=== PATIENT | male | born 1960 | race Caucasian/White ===

== ENCOUNTER → 2020-08-19 | Outpatient (CLI) | payer SELFPAY ==
--- NOTE | 2020-08-19 09:33 | RADIOLOGY REPORT (SQ) ---
EXAM DESCRIPTION: CT ABD/PELVIS WITH IV ORAL IMAGES COMPLETED DATE/TIME: 08/19/2020 8:22 am REASON FOR STUDY: HEPATOMEGALY R16.0 HEPATOMEGALY, NOT ELSEWHERE CLASSIFIED COMPARISON: None. TECHNIQUE: CT scan of the abdomen and pelvis performed using helical scanning technique with dynamic intravenous contrast injection. Patient was given oral contrast. Images reviewed with lung, soft ti ssue, and bone windows. Reconstructed coronal and sagittal MPR images reviewed. Delayed images for ev aluation of the urinary system also acquired. All images stored on PACS. All CT scanners at this facility use dose modulation, iterative reconstruction, and/or weight based d osing when appropriate to reduce radiation dose to as low as reasonably achievable (ALARA). [facility]: Dose Right [facility]: CareDose [facility]: Dose Right [facility]: Teradose 4D [facility]: Intersect ENT CONTRAST TYPE AND DOSE: contrast/concentration: Isovue 350.00 mmol/ml; Total Contrast Delivered: 94. 0 ml; Total Saline Delivered: 37.0 ml RENAL FUNCTION: Creatinine 0.96 RADIATION DOSE: CT Rad equipment meets quality standard of care and radiation dose reduction techniq ues were employed. CTDIvol: 9.0 - 12.3 mGy. DLP: 2388 mGy-cm.. LIMITATIONS: None. FINDINGS: LOWER CHEST: See separate report of the CT of the chest. LIVER: Multiple irregular hypoechoic hepatic masses throughout both lobes, largest within the right l obe measuring 9.8 cm. Large mass within the caudate lobe measuring 7.8 cm with mass effect on adjace nt intrahepatic IVC. No intrahepatic ductal dilation. SPLEEN: Multiple calcified granuloma. PANCREAS: No masses. No significant calcifications. No adjacent inflammation or peripancreatic fluid collections. Pancreatic duct not dilated. GALLBLADDER: Decompressed. No pericholecystic inflammatory change. ADRENAL GLANDS: No significant masses or asymmetry. RIGHT KIDNEY AND URETER: No solid masses. No significant calcifications. No hydronephrosis or hyd roureter. LEFT KIDNEY AND URETER: No solid masses. No significant calcifications. No hydronephrosis or hydr oureter. AORTA AND VESSELS: Aortoiliac atherosclerosis without aneurysm. No dissection. Renal arteries, SMA, c eliac without stenosis. RETROPERITONEUM: Shotty mesenteric can retroperitoneal lymph nodes without discrete adenopathy. Prea ortic node measuring 8 mm in short axis (series 4, image 42). No retroperitoneal mass or hemorrhage. BOWEL AND PERITONEAL CAVITY: Apparent soft tissue mass at the level of the cecum with mild adjacent p ericecal stranding and shotty lymph nodes (series 4, image 59 - 65). No evidence of intestinal obstr uction. APPENDIX: Normal. PELVIS: No mass. No free fluid. Normal bladder. ABDOMINAL WALL: No masses. No hernias. BONES: No acute bony abnormality. Few small subtle lucent lesions. For reference 8 mm lucent lesion along the anterior aspect of the L4 vertebral body (series 4, image 54). OTHER: No other significant finding. IMPRESSION: 1. Apparent soft tissue mass at the level of the cecum with mild adjacent pericecal str anding and shotty lymph nodes suspicious for neoplasm. Recommend correlation with colonoscopic histo ry. 2. Multiple irregular hypoechoic hepatic masses, largest measuring 9.8 cm, most compatible with hepa tic metastatic disease. 3. Few subtle lucent osseous lesions suspicious for osseous metastatic disease. TECHNICAL DOCUMENTATION: JOB ID: [id number] Quality ID # [id number]: Final reports with documentation of one or more dose reduction techniques (e.g., Au tomated exposure control, adjustment of the mA and/or kV according to patient size, use of iterative reconstruction technique) 2010 [employer]- All Rights Reserved Reading location - IP/workstation name: [email or web address]
--- NOTE | 2020-08-19 09:34 | RADIOLOGY REPORT (SQ) ---
EXAM DESCRIPTION: CT CHEST WITH IMAGES COMPLETED DATE/TIME: 08/19/2020 8:23 am REASON FOR STUDY: HEPATOMEGALY R16.0 HEPATOMEGALY, NOT ELSEWHERE CLASSIFIED COMPARISON: None. TECHNIQUE: CT scan of the chest performed using helical scanning technique with dynamic intravenous contrast injection. Images reviewed with lung, soft tissue and bone windows. Reconstructed coronal and sagittal MPR and MIP images reviewed. All images stored on PACS. All CT scanners at this facility use dose modulation, iterative reconstruction, and/or weight based d osing when appropriate to reduce radiation dose to as low as reasonably achievable (ALARA). [facility]: Dose Right [facility]: CareDose [facility]: Dose Right [facility]: Teradose 4D [facility]: [employer] CONTRAST TYPE AND DOSE: See abdomen RENAL FUNCTION: Creatinine 0.96 RADIATION DOSE: . LIMITATIONS: None. FINDINGS: LUNGS AND PLEURA: There are multiple noncalcified solid pulmonary nodules throughout both lungs. For reference largest left upper lobe pulmonary nodule measures 9.3 mm (series 7, image 60). Largest right middle lobe pulmonary nodule measures 7 mm (series 7, image 631). There are scattered additional calcified pulmonary nodules. Calcified mediastinal and hilar nodes. No focal consolidat ion. No pleural effusion or pneumothorax. HILAR AND MEDIASTINAL STRUCTURES: Calcified mediastinal and bilateral hilar lymph nodes. No discrete adenopathy. HEART AND VASCULAR STRUCTURES: Trace pericardial effusion. Normal heart size. No significant calcif ied coronary atherosclerosis. HARDWARE: None in the chest. UPPER ABDOMEN: See separate report of the CT of the abdomen. THYROID AND OTHER SOFT TISSUES: No masses. No adenopathy. Low-density subcutaneous nodule within th e right paramedian back subcutaneous tissues measuring 23 mm, possibly sebaceous cyst. BONES: Acute to subacute right posterior 10th rib fracture. No other acute bony abnormalities. Scat tered ill-defined lucent osseous lesions lytic lesions. For reference, lytic lesion within the infer ior left scapula measuring 17 mm (series 602, image 73). Lucent area within the right manubrium prabha uring 9 mm (series 7, image 21). Questionable lytic lesion at the right distal clavicle measuring 12 mm (series 7, image 1). No discrete sclerotic lesions. OTHER: No other significant finding. IMPRESSION: 1. Multiple scattered bilateral pulmonary nodules, largest within the left upper lobe m easuring 9.3 mm suspicious for metastatic disease. 2. Multiple scattered subtle lucent lesions suggestive of osseous metastatic disease. Bone scan cou ld be considered for further characterization. Acute to subacute posterior right 10th rib fracture. 3. See abdomen for findings below the diaphragm. TECHNICAL DOCUMENTATION: JOB ID: [id number] Quality ID # [id number]: Final reports with documentation of one or more dose reduction techniques (e.g., Au tomated exposure control, adjustment of the mA and/or kV according to patient size, use of iterative reconstruction technique) 2010 [employer]- All Rights Reserved Reading location - IP/workstation name: [email or web address]
== END ==
LOC: RAD 07:48
PROVIDERS: ATTEND Internal Medicine
DX: R16.0 Hepatomegaly, not elsewhere classified (principal); R91.8 Other nonspecific abnormal finding of lung field; M89.9 Disorder of bone, unspecified; R19.09 Other intra-abdominal and pelvic swelling, mass and lump; S22.31XA Fracture of one rib, right side, initial encounter for closed fracture; X58.XXXA Exposure to other specified factors, initial encounter; Y93.89 Activity, other specified; Y92.89 Other specified places as the place of occurrence of the external cause
CPT/HCPCS: 71260; 74177

== ENCOUNTER 2020-08-23 18:20 | Inpatient (IN) | payer SELFPAY ==
--- NOTE | 2020-08-23 18:51 | ER Document Report ---
ED Medical Screen (RME) - General Chief Complaint: Dizziness Stated Complaint: LOW BLOOD PRESSURE/DIZZINESS Time Seen by Provider: 08/23/20 18:45 Primary Care Provider: LAITH ROBERTS PA-C [Primary Care Provider] - Follow up as needed Mode of Arrival: Wheelchair Notes: 60-year-old male presented to ED for complaint of dizziness low blood pressure and extreme fatigue. He states he has been for 3 or 4 days. He states he has not had any blood pressure medicine for 3 days. He states he normally takes blood pressure medications for high blood pressure. Patient has lung cancer with liver mets. He is a patient of Dr. Salazar. He was on blood pressure medicine but these are all stopped due to his blood pressure. I have informed the charge nurse of the low blood pressure low O2 sat and patient's condition. I have greeted and performed a rapid initial assessment of this patient. A comprehensive ED assessment and evaluation of the patient, analysis of test results and completion of medical decision making process will be conducted by an additional ED providers. - Related Data Allergies/Adverse Reactions: No Known Allergies Allergy (Unverified 08/23/20 15:56) Past Medical History - General Information source: Patient - Social History Cigarette use (# per day): Yes - Pack a day Frequency of alcohol use: None Drug Abuse: None Lives with: Family Family history: Reviewed & Not Pertinent - Past Medical History Cardiac Medical History: Reports: None Pulmonary Medical History: Reports: None EENT Medical History: Reports: None Neurological Medical History: Reports: None Endocrine Medical History: Reports: None Renal/ Medical History: Reports: None Malignancy Medical History: Reports Hx Colorectal Cancer - With mets to liver GI Medical History: Reports: Hx Colonoscopy, Hx Endoscopy Musculoskeltal Medical History: Reports Hx Arthritis, Reports Hx Musculoskeletal Deformity, Reports Hx Musculoskeletal Trauma Skin Medical History: Reports None Psychiatric Medical History: Reports: None Traumatic Medical History: Reports: Hx Fractures Infectious Medical History: Reports: None Past Surgical History: Reports: Hx Orthopedic Surgery - Plates and screws in his left hand - Immunizations Immunizations up to date: Yes Hx Diphtheria, Pertussis, Tetanus Vaccination: Yes Physical Exam - Vital signs Vitals: Temp Pulse Resp BP Pulse Ox 98.9 F 86 18 93/51 L 93 08/23/20 18:28 08/23/20 18:28 08/23/20 18:28 08/23/20 18:28 08/23/20 18:28 Course - Vital Signs Vital signs: Temp Pulse Resp BP Pulse Ox 98.9 F 86 18 93/51 L 93 08/23/20 18:28 08/23/20 18:28 08/23/20 18:28 08/23/20 18:28 08/23/20 18:28 Doctor's Discharge - Discharge Referrals: LAITH ROBERTS PAGuzmanC [Primary Care Provider] - Follow up as needed
--- NOTE | 2020-08-23 19:51 | RADIOLOGY REPORT (SQ) ---
EXAM DESCRIPTION: CHEST 2 VIEWS IMAGES COMPLETED DATE/TIME: 08/23/2020 7:42 pm REASON FOR STUDY: Lightheaded dizzy low blood pressure fatigue cancer COMPARISON: None. EXAM PARAMETERS: NUMBER OF VIEWS: two views TECHNIQUE: Digital Frontal and Lateral radiographic views of the chest acquired. RADIATION DOSE: NA LIMITATIONS: none FINDINGS: LUNGS AND PLEURA: Chronic interstitial changes. There appears to be some ill-defined nodu larity in both lungs. MEDIASTINUM AND HILAR STRUCTURES: No masses or contour abnormalities. HEART AND VASCULAR STRUCTURES: Heart normal size. No evidence for failure. BONES: No acute findings. HARDWARE: None in the chest. OTHER: No other significant finding. IMPRESSION: Chronic lung changes with pulmonary nodules. No acute finding. TECHNICAL DOCUMENTATION: JOB ID: [id number] 2010 [employer]- All Rights Reserved Reading location - IP/workstation name: [email or web address]
[2020-08-23 20:20] LABS: INTERNATIONAL RATION (INR) 2.79; PROTHROMBIN TIME 29.4 SEC (11.4-15.4)
[2020-08-23 20:21] LABS: PARTIAL THROMBOPLASTIN TIME 54.9 SEC (23.5-35.8)
[2020-08-23 20:22] LABS: HEMATOCRIT 37.1 % (37.9-51.0); HEMOGLOBIN 12.9 g/dL (13.5-17.0); MEAN CORPUSCULAR HEMOGLOBIN 34.7 pg (27.0-33.4); MEAN CORPUSCULAR HGB CONC 34.8 g/dL (32.0-36.0); MEAN CORPUSCULAR VOLUME 100 fl (80-97); PLATELET COUNT 229 10^3/uL (150-450); RED BLOOD COUNT 3.72 10^6/uL (4.35-5.55); RED CELL DISTRIBUTION WIDTH 15.4 % (11.5-14.0); WHITE BLOOD COUNT 28.2 10^3/uL (4.0-10.5)
[2020-08-23 20:29] LABS: ALBUMIN 3.8 g/dL (3.5-5.0); ALKALINE PHOSPHATASE 271 U/L (38-126); ANION GAP 9 (5-19); ASPARTATE AMINO TRANSFERASE 190 U/L (17-59); BILIRUBIN,DIRECT 4.6 mg/dL (0.0-0.4); BILIRUBIN,TOTAL 5.7 mg/dL (0.2-1.3); BLOOD UREA NITROGEN 37 mg/dL (7-20); CARBON DIOXIDE 28 mmol/L (22-30); CHLORIDE 98 mmol/L (98-107); GLUCOSE 82 mg/dL (75-110); POTASSIUM 4.7 mmol/L (3.6-5.0); TOTAL PROTEIN 6.9 g/dL (6.3-8.2)
[2020-08-23 20:32] LABS: ABSOLUTE MONOCYTES # (MANUAL) 1.1 10^3/uL (0.1-1.4); BAND NEUTROPHILS % (MANUAL) 1 % (3-5); BASOPHILS % (MANUAL) 0 % (0-2); EOSINOPHILS % (MANUAL) 4 % (0-6); LYMPHOCYTES % (MANUAL) 7 % (13-45); METAMYELOCYTES % (MANUAL) 1 % (0-1); MONOCYTES % (MANUAL) 4 % (3-13); SEGMENTED NEUTROPHILS % (MAN) 83 % (42-78); TOTAL CELLS COUNTED 100
[2020-08-23 20:34] LABS: ANISOCYTOSIS SLIGHT; POIKILOCYTOSIS SLIGHT; POLYCHROMASIA SLIGHT; TARGET CELLS SLIGHT
[2020-08-23 20:35] LABS: PLATELET COMMENT ADEQUATE
[2020-08-23 20:46] LABS: CALCIUM 15.9 mg/dL (8.4-10.2)
[2020-08-23 20:56] LABS: PHOSPHORUS 4.2 mg/dL (2.5-4.5)
[2020-08-23] MEDS ORDERED: RINGERS SOLUTION,LACTATED 1,000 ML IV ONE (21:02)
[2020-08-23] MEDS ORDERED: METRONIDAZOLE 500 MG/NS RTU 500 MG/100 ML RTUPB IV ONE (21:18)
[2020-08-23] MEDS ORDERED: LEVOFLOXACIN 750 MG/D5W RTU 750 MG/150 ML RTUPB IV ONE (21:18)
[2020-08-23] MEDS ORDERED: ONDANSETRON HCL INJ/PF 4 MG/2 ML SDV IV ONE (22:00)
[2020-08-23] MEDS ORDERED: MORPHINE SULFATE 10 MG/ML INJ IV ONE (22:00)
[2020-08-23 22:07] LABS: APPEARANCE,URINE CLEAR; BILIRUBIN,URINE NEGATIVE (NEGATIVE); COLOR,URINE AMBER; GLUCOSE, URINE NEGATIVE (NEGATIVE); KETONES,URINE NEGATIVE (NEGATIVE); PROTEIN,URINE NEGATIVE (NEGATIVE); URINE SPECIFIC GRAVITY 1.013
[2020-08-23 22:18] LABS: A TYPE INFLUENZA AG NEGATIVE (NEGATIVE); B INFLUENZA AG NEGATIVE (NEGATIVE)
[2020-08-23] MEDS ORDERED: RINGERS LACTATED IV PRN (22:35)
--- NOTE | 2020-08-23 23:05 | RADIOLOGY REPORT (SQ) ---
CT abdomen and pelvis without contrast on 08/23/2020 at 10:23 PM CLINICAL INDICATION: Sepsis, colon cancer with liver metastasis, fatigue TECHNIQUE: Multiple axial images are obtained throughout the abdomen and pelvis without the administration of contrast. This exam was performed according to our departmental dose-optimization program, which includes automated exposure control, adjustment of the mA and/or kV according to patient size and/or use of iterative reconstruction technique. Total DLP is 711.13 mGy*cm. COMPARISON: 08/19/2020 FINDINGS: Abdomen: There is evidence of calcified granulomatous disease in the lung bases. There are multiple small noncalcified pulmonary nodules that are indeterminate but very worrisome for metastatic disease in this patient. The patient's known multiple low-density liver lesions are better visualized on the prior enhanced examination but likely not significant changed. The largest is in the right hepatic lobe seen well on axial image 25. Gallstones are noted in the gallbladder. There is a probable tiny nonobstructing stone in the upper pole of the left kidney. There are no ureteral stones and no hydronephrosis. The unenhanced solid abdominal organs are otherwise unremarkable. There is a borderline sized aortocaval lymph node on axial image 44 measuring 1.5 x 0.7 cm that is indeterminate but could represent metastatic disease. No other abdominal adenopathy is noted. There is no free fluid or free air within the abdomen. The abdominal portion of the GI tract is unremarkable. Pelvis: Also better visualized on the previous exam is the patient's irregular mass in the inferior cecum consistent with primary colonic adenocarcinoma. This is seen on axial image 65 of this exam. There is no evidence of obstruction. Oral contrast from the recent exam extends into the distal colon and rectum. Pelvic portion of the GI tract is otherwise unremarkable. There is no free fluid in the pelvis. There is a small pericecal lymph nodes that likely represents early metastatic disease. No other pelvic adenopathy is noted. Degenerative changes are noted in the spine. Bilateral pars defects are noted at L5 with grade 1 spondylolisthesis of L5-S1. No acute bony abnormality is noted. IMPRESSION: 1. Cholelithiasis. 2. Stable cecal mass/probable adenocarcinoma and hepatic metastatic disease and likely pulmonary metastatic disease when compared with the recent prior exam. 3. Left nephrolithiasis.
[2020-08-24] MEDS ORDERED: ONDANSETRON HCL INJ/PF 4 MG/2 ML SDV IV ONE (01:36)
[2020-08-24] MEDS ORDERED: ACETAMINOPHEN 325 MG TABLET PO PRN (01:44)
[2020-08-24] MEDS ORDERED: ONDANSETRON HCL INJ/PF 4 MG/2 ML SDV IV PRN (01:44)
[2020-08-24] MEDS ORDERED: ZOLEDRONIC ACID 5 MG/100 ML BOTTLE IV ONE (01:53)
[2020-08-24] MEDS ORDERED: CALCITONIN,SALMON,SYNTHETIC 400 UNIT/2 ML VIAL IM SCH ×2 (02:00→18:00)
[2020-08-24] MEDS ORDERED: MORPHINE SULFATE 10 MG/ML INJ IV PRN (02:11)
--- NOTE | 2020-08-24 02:17 | ER Document Report ---
ED General - General Chief Complaint: Weakness Stated Complaint: LOW BLOOD PRESSURE/DIZZINESS Time Seen by Provider: 08/23/20 18:45 Mode of Arrival: Wheelchair Notes: 60-year-old male with htn, primary colon cancer with mets to liver and recently diagnosed mets to lungs presents with generalized weakness and low blood pressure associated with lightheadedness for the past 3 to 4 days. Patient has a history of hypertension but has not been taking his antihypertensives for the past several days because of low blood pressure. Patient endorses frequent urination but is unable to say how long he has experienced that for and denies any urgency, dysuria, hematuria, flank pain, fever. Patient has had chronic diffuse abdominal pain and distention since diagnosis, feels like it has been progressively getting worse but unsure over what time scale this change has been noticed. Patient denies any recent chemo, black stool, bloody stool, done sedation, diarrhea, vomiting, cough, seizure, chest pain, shortness of breath, back pain, headache, neck pain or stiffness - Related Data Allergies/Adverse Reactions: No Known Allergies Allergy (Verified 08/23/20 20:47) Past Medical History - General Information source: Patient, Relative, [facility] Records, Outside Facility Records - Social History Smoking Status: Current Every Day Smoker Cigarette use (# per day): Yes - Pack a day Frequency of alcohol use: None Drug Abuse: None Lives with: Family Family History: Reviewed & Not Pertinent - Past Medical History Cardiac Medical History: Reports: None Pulmonary Medical History: Reports: None EENT Medical History: Reports: None Neurological Medical History: Reports: None Endocrine Medical History: Reports: None Renal/ Medical History: Reports: None Malignancy Medical History: Reports Hx Colorectal Cancer - With mets to liver GI Medical History: Reports: Hx Colonoscopy, Hx Endoscopy Musculoskeletal Medical History: Reports Hx Arthritis, Reports Hx Musculoskeletal Deformity, Reports Hx Musculoskeletal Trauma Skin Medical History: Reports None Psychiatric Medical History: Reports: None Traumatic Medical History: Reports: Hx Fractures Infectious Medical History: Reports: None Past Surgical History: Reports: Hx Orthopedic Surgery - Plates and screws in his left hand - Immunizations Immunizations up to date: Yes Hx Diphtheria, Pertussis, Tetanus Vaccination: Yes Review of Systems - Review of Systems Notes: REVIEW OF SYSTEMS: CONSTITUTIONAL : Denies fever, chills, or sweats. EENT: Denies recent cold/sinus symptoms, denies throat pain CARDIOVASCULAR: Denies chest pain, NARESH RESPIRATORY: +cough, denies shortness of breath. GASTROINTESTINAL: + abdominal pain, -nausea/vomiting. GENITOURINARY: Denies difficulty urinating, painful urination. MUSCULOSKELETAL: Denies neck pain, back pain. SKIN: Denies rash or skin lesions. HEMATOLOGIC : Denies easy bruising or bleeding. LYMPHATIC: Denies swollen, enlarged glands. NEUROLOGICAL: Denies headache, denies change in gait. PSYCHIATRIC: Denies anxiety or depression. Physical Exam - Vital signs Vitals: Temp Pulse Resp BP Pulse Ox 98.9 F 86 18 93/51 L 93 08/23/20 18:28 08/23/20 18:28 08/23/20 18:28 08/23/20 18:28 08/23/20 18:28 - Notes Notes: PHYSICAL EXAMINATION: GENERAL: Chronically ill-appearing uncomfortable but nontoxic middle-age man ly ing in stretcher in no acute distress HEAD: Atraumatic, normocephalic. EYES: Pupils equal round and appropriate constriction, sclera anicteric, conjunctiva are normal. ENT: nares patent, moist mucous membranes. NECK: Normal range of motion, supple without lymphadenopathy LUNGS: Breath sounds clear to auscultation bilaterally and equal. No wheezes rales or rhonchi. Normal respiratory rate and effort HEART: Regular rate and rhythm with faint systolic murmur ABDOMEN: Distended, hepatomegaly, mild diffuse tenderness without guarding or rebound, no CVA tenderness EXTREMITIES: Normal range of motion, trace symmetric pedal edema NEUROLOGICAL: Awake, alert, oriented, conversing appropriately, moves all extremities spontaneously. PSYCH: Normal mood, normal affect. SKIN: Warm, Dry, normal turgor, no rashes or lesions noted. Course - Re-evaluation Re-evalutation: 08/24/20 02:37 Patient with metastatic liver cancer with new hypotension, no obvious cause on history or exam, rule out urinary/respiratory/COVID-19 sepsis, cardiac, electrolyte abnormalities, anemia/occult bleeding, rhabdo. no PE symptoms and patient able to give reliable history. Blood cultures, urine culture, x-ray, intervals, EKG, monitor, electrolytes, coags, admit. Blood pressure improved with fluids, mildly elevated lactate not obviously secondary to sepsis as patient has liver failure with elevated INR may be primary hepatic lactate, but have cover patient with broad-spectrum antibiotics and given 30 mils per kilogram fluid bolus. Patient accepted to IMCU by Dr. Coker. - Vital Signs Vital signs: Temp Pulse Resp BP Pulse Ox 98.3 F 82 18 114/62 93 08/24/20 03:47 08/24/20 03:47 08/24/20 03:47 08/24/20 03:47 08/24/20 03:47 - Laboratory Result Diagrams: 08/23/20 19:25 08/24/20 02:12 Laboratory results interpreted by me: 08/23/20 08/23/20 08/23/20 19:25 19:25 19:25 WBC 28.2 H RBC 3.72 L Hgb 12.9 L Hct 37.1 L MCV 100 H MCH 34.7 H RDW 15.4 H Seg Neuts % (Manual) 83 H Band Neutrophils % 1 L Lymphocytes % (Manual) 7 L Abs Neuts (Manual) 24.0 H Absolute Eos (Manual) 1.1 H PT 29.4 H APTT 54.9 H Sodium 135.0 L BUN 37 H Creatinine 1.37 H Est GFR (MDRD) Non-Af 53 L Lactic Acid Calcium 15.9 H* Magnesium Total Bilirubin 5.7 H Direct Bilirubin 4.6 H AST 190 H ALT 95 H Alkaline Phosphatase 271 H NT-Pro-B Natriuret Pep Urine Urobilinogen 08/23/20 08/23/20 08/23/20 19:25 19:25 21:26 WBC RBC Hgb Hct MCV MCH RDW Seg Neuts % (Manual) Band Neutrophils % Lymphocytes % (Manual) Abs Neuts (Manual) Absolute Eos (Manual) PT APTT Sodium BUN Creatinine Est GFR (MDRD) Non-Af Lactic Acid Calcium Magnesium 2.5 H Total Bilirubin Direct Bilirubin AST ALT Alkaline Phosphatase NT-Pro-B Natriuret Pep 721 H Urine Urobilinogen 2.0 H 08/23/20 21:35 WBC RBC Hgb Hct MCV MCH RDW Seg Neuts % (Manual) Band Neutrophils % Lymphocytes % (Manual) Abs Neuts (Manual) Absolute Eos (Manual) PT APTT Sodium BUN Creatinine Est GFR (MDRD) Non-Af Lactic Acid 2.2 H Calcium Magnesium Total Bilirubin Direct Bilirubin AST ALT Alkaline Phosphatase NT-Pro-B Natriuret Pep Urine Urobilinogen - EKG Interpretation by Me Additional EKG results interpreted by me: 08/24/20 06:24 Sinus rhythm, no significant ST elevations or depressions, T wave inversions in lead III and aVF, QTC 419 Discharge - Discharge Clinical Impression: Colon carcinoma metastatic to multiple sites, Hypercalcemia, YOAN (acute kidney injury) Hypotension Qualifiers: Hypotension type: unspecified hypotension type Qualified Code(s): I95.9 - Hypotension, unspecified Leukocytosis Qualifiers: Leukocytosis type: bandemia Qualified Code(s): D72.825 - Bandemia Liver failure Qualifiers: Liver failure chronicity: acute Hepatic coma status: without hepatic coma Qualified Code(s): K72.00 - Acute and subacute hepatic failure without coma Condition: Serious Disposition: ADMITTED INPATIENT [facility]
--- NOTE | 2020-08-24 02:44 | PDOC H&P ---
History of Present Illness Admission Date/PCP: LAITH ROBERTS PA-C Patient complains of: Low blood pressure. Nausea and History of Present Illness: GONZALO BECKHAM is a 60 year old male with a history of hypertension and recently diagnosed colon cancer with metastasis to the liver and the lungs now presents to the ED via EMS after his blood pressure was consistently low at home. Patient reports that he has been having loss of appetite and it has been progressively getting worse. Over the past 2 weeks he feels nauseated and has not been able to eat much. He also reports that he has been feeling extremely tired unable to do anything or move at home, dizzy and lightheaded especially when he gets up to move. He has a chronic cough but he states that the intensity has not changed recently. He also complains of bilateral chest pain posteriorly which gets worse with movement and when he coughs. He also states that he has not had bowel movement for the past 5 days and his abdomen has been progressively getting distended. He denies fever, chills vomiting or diarrhea. He has been seen by heme-onc and plan was to do biopsy of the mass next Wednesday and insert Chemo-Port for possible chemotherapy the following week. Past Medical History Cardiac Medical History: Reports: None Pulmonary Medical History: Reports: None EENT Medical History: Reports: None Neurological Medical History: Reports: None Endocrine Medical History: Reports: None Renal/ Medical History: Reports: None Malignancy Medical History: Reports: Colorectal Cancer - With mets to liver Musculoskeltal Medical History: Reports: Arthritis Skin Medical History: Reports: None Psychiatric Medical History: Reports: None Infectious Medical History: Reports: None Past Surgical History Past Surgical History: Reports: Orthopedic Surgery - Plates and screws in his left hand Social History Information Source: Patient Lives with: Family Smoking Status: Current Every Day Smoker Frequency of Alcohol Use: Occasional - Advance Directive Resuscitation Status: Full Code Family History Parental Family History Reviewed: Yes Children Family History Reviewed: Yes Sibling(s) Family History Reviewed.: Yes Medication/Allergy Home Medications: Benzonatate 200 mg PO PRN PRN 08/23/20 Cephalexin [Keflex] 500 mg PO TID 08/23/20 Hydrocodone/Acetaminophen [Vicodin Hp 10-300 mg Tablet] 1 tab PO Q6HP PRN 08/23/20 Allergies/Adverse Reactions: No Known Allergies Allergy (Verified 08/23/20 20:47) Review of Systems Constitutional: PRESENT: as per HPI Eyes: ABSENT: visual disturbances Ears: ABSENT: hearing changes Nose, Mouth, and Throat: ABSENT: as per HPI, headache(s), mouth pain, sore throat, vertigo, other Cardiovascular: ABSENT: chest pain, dyspnea on exertion, edema, orthropnea, palpitations Respiratory: PRESENT: as per HPI Gastrointestinal: PRESENT: as per HPI Genitourinary: ABSENT: dysuria, hematuria Musculoskeletal: ABSENT: joint swelling Integumentary: ABSENT: rash, wounds Neurological: ABSENT: abnormal gait, abnormal speech, confusion, dizziness, focal weakness, syncope Psychiatric: ABSENT: anxiety, depression, homidical ideation, suicidal ideation Endocrine: ABSENT: cold intolerance, heat intolerance, polydipsia, polyuria Hematologic/Lymphatic: ABSENT: easy bleeding, easy bruising Physical Exam Vital Signs: Temp Pulse Resp BP Pulse Ox 98.4 F 86 18 103/56 L 93 08/23/20 21:06 08/23/20 18:28 08/23/20 23:00 08/23/20 22:01 08/23/20 23:00 Intake & Output 08/22/20 08/23/20 08/24/20 06:59 06:59 06:59 Intake Total 100 Balance 100 Weight 86.183 kg Additional comments: GENERAL APPEARANCE: Alert and oriented x3, no acute distress HEENT: Normocephalic and atraumatic. No scleral icterus. Dry oral mucosa NECK: Supple. No lymphadenopathy or tenderness. No carotid bruit. No JVD CHEST: Symmetric. Nontender to palpation. LUNGS: Has wheezing bilaterally, good air entry HEART: Regular rate and rhythm with normal S1 and S2. No murmurs, gallops, or rubs. ABDOMEN: Distended but soft, active bowel sounds, no direct or rebound tenderness. No organomegaly detected. EXTREMITIES: No cyanosis, clubbing, or edema. MUSCULOSKELETAL: No deformity, atrophy or swelling noted PSYCHIATRIC: Recent and remote memory is intact. Appropriate mood and affect. SKIN: Warm, dry, and well perfused. No lesions or rashes are noted. NEUROLOGIC: No focal sensory or motor deficits are noted. Results Laboratory Results: 08/23/20 19:25 08/23/20 19:25 08/23/20 08/23/20 08/23/20 19:25 19:25 19:25 WBC 28.2 H RBC 3.72 L Hgb 12.9 L Hct 37.1 L MCV 100 H MCH 34.7 H MCHC 34.8 RDW 15.4 H Plt Count 229 Seg Neutrophils % Not Reportable Sodium 135.0 L Potassium 4.7 Chloride 98 Carbon Dioxide 28 Anion Gap 9 BUN 37 H Creatinine 1.37 H Est GFR ( Amer) > 60 Glucose 82 Lactic Acid Calcium 15.9 H* Phosphorus Magnesium Total Bilirubin 5.7 H AST 190 H Alkaline Phosphatase 271 H Total Protein 6.9 Albumin 3.8 Lipase Urine Color Urine Appearance Urine pH Ur Specific T[place] Urine Protein Urine Glucose (UA) Urine Ketones Urine Blood Urine RBC (Auto) Blood Type B POSITIVE Antibody Screen NEGATIVE 08/23/20 08/23/20 08/23/20 19:25 19:25 21:26 WBC RBC Hgb Hct MCV MCH MCHC RDW Plt Count Seg Neutrophils % Sodium Potassium Chloride Carbon Dioxide Anion Gap BUN Creatinine Est GFR ( Amer) Glucose Lactic Acid Calcium Phosphorus 4.2 Magnesium 2.5 H Total Bilirubin AST Alkaline Phosphatase Total Protein Albumin Lipase 40.9 Urine Color LINDSEY Urine Appearance CLEAR Urine pH 5.0 Ur Specific [place] 1.013 Urine Protein NEGATIVE Urine Glucose (UA) NEGATIVE Urine Ketones NEGATIVE Urine Blood NEGATIVE Urine RBC (Auto) 1 Blood Type Antibody Screen 08/23/20 21:35 WBC RBC Hgb Hct MCV MCH MCHC RDW Plt Count Seg Neutrophils % Sodium Potassium Chloride Carbon Dioxide Anion Gap BUN Creatinine Est GFR ( Amer) Glucose Lactic Acid 2.2 H Calcium Phosphorus Magnesium Total Bilirubin AST Alkaline Phosphatase Total Protein Albumin Lipase Urine Color Urine Appearance Urine pH Ur Specific Tabor Urine Protein Urine Glucose (UA) Urine Ketones Urine Blood Urine RBC (Auto) Blood Type Antibody Screen 08/23/20 08/23/20 08/23/20 19:25 19:25 19:25 Creatine Kinase 131 Troponin I < 0.012 NT-Pro-B Natriuret Pep 721 H Impressions: Chest X-Ray 08/23/20 18:54 IMPRESSION: Chronic lung changes with pulmonary nodules. No acute finding. Abdomen/Pelvis CT 08/23/20 22:16 IMPRESSION: 1. Cholelithiasis. 2. Stable cecal mass/probable adenocarcinoma and hepatic metastatic disease and likely pulmonary metastatic disease when compared with the recent prior exam. 3. Left nephrolithiasis. Assessment and Plan - Diagnosis (1) Hypercalcemia Is this a current diagnosis for this admission?: Yes Plan: Likely hypercalcemia of malignancy Serum calcium was 15.6, albumin was normal Patient has no change in his mental status EKG shows normal sinus rhythm Started on aggressive IV hydration Gave zoledronic acid and started calcitonin Ordered PTH. If normal, will obtain PTHrP and vitamin D level Closely monitor electrolytes including calcium (2) Hypotension Qualifiers: Hypotension type: unspecified hypotension type Qualified Code(s): I95.9 - Hypotension, unspecified Is this a current diagnosis for this admission?: Yes Plan: Hypovolemic likely due to poor oral intake vs sepsis Lactic acid level was mildly elevated to 2.2 Blood pressure improved to 102/65 after initial IV hydration at the ED continue IV hydration with normal saline at 250 mL/h Closely monitor vital signs for response to treatment (3) Leukocytosis Qualifiers: Leukocytosis type: bandemia Qualified Code(s): D72.825 - Bandemia Is this a current diagnosis for this admission?: Yes Plan: WBC on presentation was 28k Patient denies fever and his cough has not changed from baseline CT chest/abdomen/pelvis was done and showed no significant change from previous study that showed Cecal mass with metastasis to the liver and lungs Renal analysis showed no sign of infection Due to underlying malignancy and possible immunosuppression, will promptly start him on Zosyn Follow-up with blood and urine cultures Continue to monitor CBC (4) YOAN (acute kidney injury) Is this a current diagnosis for this admission?: Yes Plan: Likely prerenal from volume depletion due to poor oral intake BUN/creatinine was 37/1.37 Continue IV hydration Closely monitor renal indicis Renally dose medications (5) Colon carcinoma metastatic to multiple sites Is this a current diagnosis for this admission?: Yes Plan: Newly diagnosed this week Scheduled to undergo biopsy Heme-onc planning to get access for chemo Will control pain with morphine 2 mg IV every 4 hourly as needed Will touch base with heme-onc in the morning. (6) Elevated liver enzymes Is this a current diagnosis for this admission?: Yes Plan: Likely due to metastatic lesions Monitor CMP - Time Time Spent with patient: 35 or more minutes Total Critical Time (Minutes): 45 Smoking Cessation Education: 3 to 10 minutes Medications reviewed and adjusted accordingly: Yes Anticipated Discharge Disposition: Home, Self Care Anticipated Discharge Timeframe: within 72 hours - Inpatient Certification Based on my medical assessment, after consideration of the patient's comorbidities, presenting symptoms, or acuity I expect that the services needed warrant INPATIENT care.: Yes I certify that my determination is in accordance with my understanding of [employer]'s requirements for reasonable and necessary INPATIENT services [42 CFR 412.3e].: Yes Medical Necessity: Significant Comorbidiites Make Outpatient Treatment Too Risky, Need Close Monitoring Due to Risk of Patient Decompensation, Need For IV Fluids, Need For Continuous Telemetry Monitoring, Need for IV Antibiotics Post Hospital Care: D/C or Transfer Summary
[2020-08-24 02:59] LABS: ALBUMIN 2.9 g/dL (3.5-5.0); ALKALINE PHOSPHATASE 217 U/L (38-126); ANION GAP 7 (5-19); ASPARTATE AMINO TRANSFERASE 167 U/L (17-59); BILIRUBIN,DIRECT 4.2 mg/dL (0.0-0.4); BILIRUBIN,TOTAL 5.2 mg/dL (0.2-1.3); BLOOD UREA NITROGEN 36 mg/dL (7-20); CARBON DIOXIDE 27 mmol/L (22-30); CHLORIDE 101 mmol/L (98-107); GLUCOSE 97 mg/dL (75-110); POTASSIUM 4.5 mmol/L (3.6-5.0)
[2020-08-24 03:09] LABS: CALCIUM 14.6 mg/dL (8.4-10.2)
[2020-08-24] MEDS ORDERED: ZOLEDRONIC ACID 5 MG/100 ML RTU IV ONE (04:00)
[2020-08-24] MEDS: NORMAL SALINE 1000 ML 1,000 ML IV PRN ×2 (04:45→21:28)
[2020-08-24] MEDS ORDERED: CALCITONIN,SALMON,SYNTHETIC 400 UNIT/2 ML VIAL ONE (05:10)
[2020-08-24] MEDS ORDERED: PIPERACILLIN/TAZOBACTAM 3.375 GM VIAL IV ONE (06:18)
[2020-08-24] MEDS: PIPERACILLIN SODIUM/TAZOBACTAM 3.375 GM in NORMAL SALINE 100 ML IV SCH ×4 (06:28→23:56)
--- NOTE | 2020-08-24 06:57 | EKG REPORT ---
SEVERITY:- ABNORMAL ECG - SINUS RHYTHM PROBABLE INFERIOR INFARCT, AGE INDETERMINATE : Confirmed by: Earsmo Flowers MD 24-Aug-2020 06:56:18
[2020-08-24] MEDS ORDERED: ENOXAPARIN SODIUM INJ 40 MG/0.4 ML DISP.SYRIN SUBCUT ONE (08:54)
[2020-08-24] MEDS ORDERED: ZOLEDRONIC ACID 4 MG/100 ML RTU IV ONE ×2 (09:00→10:00)
[2020-08-24] MEDS: ENOXAPARIN SODIUM INJ 40 MG/0.4 ML DISP.SYRIN SUBCUT SCH (09:29)
[2020-08-24 09:32] LABS: HEMATOCRIT 34.6 % (37.9-51.0); HEMOGLOBIN 11.9 g/dL (13.5-17.0); MEAN CORPUSCULAR HEMOGLOBIN 34.6 pg (27.0-33.4); MEAN CORPUSCULAR HGB CONC 34.5 g/dL (32.0-36.0); MEAN CORPUSCULAR VOLUME 100 fl (80-97); PLATELET COUNT 210 10^3/uL (150-450); RED BLOOD COUNT 3.45 10^6/uL (4.35-5.55); RED CELL DISTRIBUTION WIDTH 15.6 % (11.5-14.0); WHITE BLOOD COUNT 25.6 10^3/uL (4.0-10.5)
[2020-08-24 09:50] LABS: ALBUMIN 3.2 g/dL (3.5-5.0); ALKALINE PHOSPHATASE 216 U/L (38-126); ANION GAP 9 (5-19); ASPARTATE AMINO TRANSFERASE 181 U/L (17-59); BLOOD UREA NITROGEN 35 mg/dL (7-20); CARBON DIOXIDE 25 mmol/L (22-30); CHLORIDE 104 mmol/L (98-107); GLUCOSE 109 mg/dL (75-110); PHOSPHORUS 3.6 mg/dL (2.5-4.5); POTASSIUM 4.3 mmol/L (3.6-5.0); TOTAL PROTEIN 6.3 g/dL (6.3-8.2)
[2020-08-24 09:59] LABS: CALCIUM 13.9 mg/dL (8.4-10.2)
--- NOTE | 2020-08-24 10:52 | Progress Note ---
Provider Note Provider Note: Hematology/Oncology consult was received. Patient is currently in COVID-19 restriction. I was not able to examine him, but was able to review chart and discuss with nursing staff. I will perform full examination once isolation retrictions have been lifted. Patient is a 60 year old gentleman who was diagnosed with colon cancer with mets to the liver and lung. He presented with nausea and vomiting. A port was planned as outpatient prior to starting chemotherpay. However, he was admitted with hypercalcemia, nausea, and hypotension. He was started on IV fluids and antiemetics and given 1 dose zolendraic acid. I will review office notes further and make further recommendations. I agree with fluids, electrolyte replacement, supportive measures. If patient has not had MRI brain prior to admission, may consider this to rule out brain mets. Ammonia and Lipase are normal. Please call with any questions or concerns.
[2020-08-24] MEDS ORDERED: NORMAL SALINE 1000 ML 2,000 ML IV ONE (11:17)
[2020-08-24] MEDS: FAMOTIDINE 20 MG TABLET PO SCH ×2 (11:22→21:29)
--- NOTE | 2020-08-24 14:43 | RADIOLOGY REPORT (SQ) ---
EXAM DESCRIPTION: HAND LEFT 2 VIEWS IMAGES COMPLETED DATE/TIME: 08/24/2020 2:26 pm REASON FOR STUDY: hx surgical plate in L hand COMPARISON: None. EXAM PARAMETERS: NUMBER OF VIEWS: Two view. TECHNIQUE: AP, lateral and oblique radiographic images acquired of the left hand. LIMITATIONS: None. FINDINGS: MINERALIZATION: Normal. BONES: Orthopedic plates 34th metacarpals. JOINTS: No effusions. SOFT TISSUES: No soft tissue swelling. No foreign body. OTHER: No other significant finding. IMPRESSION: Orthopedic hardware at 3rd and 4th metacarpals. No obvious hardware failure. TECHNICAL DOCUMENTATION: JOB ID: [id number] 2010 [employer]- All Rights Reserved Reading location - IP/workstation name: [email or web address]
--- NOTE | 2020-08-24 14:50 | Progress Note ---
Provider Note Provider Note: Patient was seen and evaluated on morning rounds. He is sitting upright on the edge of his bed in no acute distress. He reports abdominal discomfort, constipation (last BM x5 days ago), pain in his ribs posteriorly, and feeling "out of it." All symptoms are consistent wit hhypercalcemia. Calcium on admission 14.6 -> 13.9 with IV fluids, calcitonin 250u IM q12 and Zometa 4mg. Ionized calcium elevated 1.75. PTH intact low 7. Lactic acid elevated 2.6. Johnny recently diagnosed with colon cancer on 08/19/2020. Followed by Dr. Hawkins. Oncology consulted. Dr. Long onboard, discussed case, note reviewed. CT scan shows widespread in bones, liver and lungs. Liver biopsy scheduled for 08/26/2020. Colonoscopy scheduled for 08/30/2020. Recommended MRI with contrast to r/o mets. Pt with hx surgical plate L hand, unknown if MRI compatible. L hand XR order to clarify compatibility. Plan for MRI brain. Repeat / trend lactic acid. Follow cbc and chemistries daily. Plan to continue with heavy IV hydration and calcitonin. Will monitor for fluid overload. Plan to implement IV lasix if needed.
[2020-08-24] MEDS ORDERED: HYDROCODONE/ACETAMINOPHEN 5-325 MG TABLET PO PRN (15:27)
[2020-08-24] MEDS ORDERED: BENZONATATE 100 MG CAPSULE PO PRN (15:27)
[2020-08-24] MEDS: POLYETHYLENE GLYCOL 3350 POWDER 17 GM/1 PACKET PO SCH (18:05)
[2020-08-24] MEDS: SENNOSIDES/DOCUSATE 8.6-50 MG 1 EACH TABLET PO SCH (18:05)
[2020-08-24] MEDS: CALCITONIN,SALMON,SYNTHETIC 400 UNIT/2 ML VIAL IM SCH (18:12)
[2020-08-25 05:57] LABS: HEMATOCRIT 30.6 % (37.9-51.0); HEMOGLOBIN 10.5 g/dL (13.5-17.0); MEAN CORPUSCULAR HEMOGLOBIN 34.4 pg (27.0-33.4); MEAN CORPUSCULAR HGB CONC 34.4 g/dL (32.0-36.0); MEAN CORPUSCULAR VOLUME 100 fl (80-97); PLATELET COUNT 182 10^3/uL (150-450); RED BLOOD COUNT 3.06 10^6/uL (4.35-5.55); RED CELL DISTRIBUTION WIDTH 15.4 % (11.5-14.0); WHITE BLOOD COUNT 23.1 10^3/uL (4.0-10.5)
[2020-08-25] MEDS: CALCITONIN,SALMON,SYNTHETIC 400 UNIT/2 ML VIAL IM SCH (06:13)
[2020-08-25] MEDS: PIPERACILLIN SODIUM/TAZOBACTAM 3.375 GM in NORMAL SALINE 100 ML IV SCH ×2 (06:16→13:26)
[2020-08-25] MEDS: NORMAL SALINE 1000 ML 1,000 ML IV PRN (06:41)
[2020-08-25 07:01] LABS: ABSOLUTE LYMPHOCYTES# (MANUAL) 0.5 10^3/uL (0.5-4.7); ABSOLUTE MONOCYTES # (MANUAL) 0.2 10^3/uL (0.1-1.4); BASOPHILS % (MANUAL) 0 % (0-2); EOSINOPHILS % (MANUAL) 2 % (0-6); LYMPHOCYTES % (MANUAL) 2 % (13-45); MONOCYTES % (MANUAL) 1 % (3-13); PLATELET COMMENT ADEQUATE; SEGMENTED NEUTROPHILS % (MAN) 95 % (42-78); TOTAL CELLS COUNTED 100
[2020-08-25 07:04] LABS: TARGET CELLS SLIGHT
[2020-08-25 07:05] LABS: ANISOCYTOSIS SLIGHT; POLYCHROMASIA SLIGHT
[2020-08-25 07:38] LABS: ANION GAP 9 (5-19); BLOOD UREA NITROGEN 40 mg/dL (7-20); CARBON DIOXIDE 22 mmol/L (22-30); CHLORIDE 107 mmol/L (98-107); GLUCOSE 107 mg/dL (75-110); POTASSIUM 4.1 mmol/L (3.6-5.0)
[2020-08-25 07:49] LABS: CALCIUM 12.4 mg/dL (8.4-10.2)
[2020-08-25] MEDS ORDERED: NORMAL SALINE 1000 ML 3,000 ML IV ONE (08:28)
[2020-08-25] MEDS: SENNOSIDES/DOCUSATE 8.6-50 MG 1 EACH TABLET PO SCH ×2 (09:08→11:56)
[2020-08-25] MEDS: ENOXAPARIN SODIUM INJ 40 MG/0.4 ML DISP.SYRIN SUBCUT SCH (09:08)
[2020-08-25] MEDS: FAMOTIDINE 20 MG TABLET PO SCH (09:08)
[2020-08-25] MEDS: POLYETHYLENE GLYCOL 3350 POWDER 17 GM/1 PACKET PO SCH ×2 (09:08→11:56)
[2020-08-25] MEDS ORDERED: PHYTONADIONE 5 MG TABLET PO ONE (11:00)
--- NOTE | 2020-08-25 13:01 | PDOC DISCHARGE SUMMARY ---
Impression - Admit/DC Date/PCP Admission Date/Primary Care Provider: 08/24/20 01:57 LAITH ROBERTS PA-C Discharge Date: 08/25/20 - Discharge Diagnosis (1) Hypercalcemia Is this a current diagnosis for this admission?: Yes (2) Hypotension Is this a current diagnosis for this admission?: Yes (3) Elevated partial thromboplastin time (PTT) Is this a current diagnosis for this admission?: Yes (4) Leukocytosis Is this a current diagnosis for this admission?: Yes (5) YOAN (acute kidney injury) Is this a current diagnosis for this admission?: Yes (6) Colon carcinoma metastatic to multiple sites Is this a current diagnosis for this admission?: Yes (7) Elevated liver enzymes Is this a current diagnosis for this admission?: Yes - Additional Information Resuscitation Status: Full Code Discharge Diet: As Tolerated Discharge Activity: Activity As Tolerated Referrals: LAITH ROBERTS PA-C [Primary Care Provider] - Follow up as needed Home Medications: Benzonatate 200 mg PO Q8HP PRN 08/23/20 Cephalexin [Keflex] 500 mg PO TID 08/23/20 Hydrocodone/Acetaminophen [Vicodin Hp 10-300 mg Tablet] 1 tab PO Q6HP PRN 08/23/20 History of Present Illiness History of Present Illness: As per admitting HPI documented by Dr. Coker on 08/24/2020: "GONZALO BECKHAM is a 60 year old male with a history of hypertension and recently diagnosed colon cancer with metastasis to the liver and the lungs now presents to the ED via EMS after his blood pressure was consistently low at home. Patient reports that he has been having loss of appetite and it has been progressively getting worse. Over the past 2 weeks he feels nauseated and has not been able to eat much. He also reports that he has been feeling extremely tired unable to do anything or move at home, dizzy and lightheaded especially when he gets up to move. He has a chronic cough but he states that the intensity has not changed recently. He also complains of bilateral chest pain posteriorly which gets worse with movement and when he coughs. He also states that he has not had bowel movement for the past 5 days and his abdomen has been progressively getting distended. He denies fever, chills vomiting or diarrhea. He has been seen by heme-onc and plan was to do biopsy of the mass next Wednesday and insert Chemo-Port for possible chemotherapy the following week." Hospital Course Hospital Course: (1) Hypercalcemia Presented with constipation, slight alter in mental status, and bone pain. Likely hypercalcemia of malignancy. Serum calcium 15.6 on admission, trended downward (12.4 on discharge) with treatment including aggressive IV hydration, calcitonin 250u IM q12 and Zometa 4mg. Miralax and Senna Plus implemented to aid in constipation; recommend continued treatment outpatient. Patient is wanting to go home. Case discussed with Dr. Sheikh and Dr. Long. Patient is stable and happy to go home. (2) Hypotension Hypovolemic likely due to poor oral intake. Lactic acid level was mildly elevated to 2.2 trended to 0.9 with IVF. Blood pressures improved with fluids with consistent values in low 100s/80s. Held HTN home meds over course of hospitalization. Continue to hold at home. Recommend frequent and close BP monitoring. (3) Elevated Activated Partial Thromboplastin Time APTT 54.9 on admission. Pt scheduled for liver biopsy tomorrow. Discussed with oncology, recommend single dose of Vitamin K 2.5mg PO. No further treatment necessary. (4) Leukocytosis WBC on presentation was 28k. Pt with hx of leukocytosis found on oncology labs, treated by Dr. Hawkins with Rx for Keflex. This was held over course of admission. Due to his underlying malignancy and possible immunosuppression, he was started promptly on Zosyn. Pt asymptomatic, without finding on imaging or labs and no obvious source of infection. Zosyn was discontinued. He may resume Keflex rx from outpatient oncologist and complete rx in full. (5) YOAN (acute kidney injury) Likely prerenal from volume depletion due to poor oral intake. BUN/creatinine was 37/1.37 -> 40/1.42 with aggressive IV hydration. He is producing urine. Renally dose all medication. Encourage frequent hydration PO. (6) Colon carcinoma metastatic to multiple sites Johnny recently diagnosed with colon cancer on 08/19/2020. Followed by Dr. Hawkins. Oncology consulted. Dr. Long onboard, discussed case, note reviewed. CT scan shows widespread in bones, liver and lungs. Liver biopsy scheduled for 08/26/2020 at [facility]. Colonoscopy scheduled for 08/30/2020. Pt without hx of brain MRI to assess for METs. Hx orthopedic hardware in left hand. Per hardware was placed in the 1980s, unaware of compatibility. Oncology was made aware of this. (7) Elevated liver enzymes Likely due to metastatic lesions. Physical Exam Vital Signs: Temp Pulse Resp BP Pulse Ox 98.3 F 91 20 127/58 H 93 08/25/20 11:51 08/25/20 11:51 08/25/20 11:51 08/25/20 11:51 08/25/20 11:51 Intake & Output 08/24/20 08/25/20 08/26/20 06:59 06:59 06:59 Intake Total 1108 4810 Output Total 500 1200 Balance 608 3610 Weight 86.183 kg 86.1 kg General appearance: PRESENT: no acute distress, cooperative, well-developed, well-nourished Head exam: PRESENT: atraumatic, normocephalic Eye exam: PRESENT: EOMI. ABSENT: scleral icterus Mouth exam: PRESENT: dry mucosa, tongue midline Neck exam: PRESENT: full ROM. ABSENT: tenderness Respiratory exam: PRESENT: clear to auscultation dmitry, symmetrical, unlabored. ABSENT: tachypnea, wheezes Cardiovascular exam: PRESENT: RRR, +S1, +S2. ABSENT: diastolic murmur, systolic murmur Pulses: PRESENT: normal radial pulses GI/Abdominal exam: PRESENT: distended, normal bowel sounds, soft. ABSENT: tenderness Extremities exam: PRESENT: full ROM. ABSENT: clubbing Musculoskeletal exam: PRESENT: ambulatory, full ROM. ABSENT: deformity, dislocation Neurological exam: PRESENT: alert, awake, oriented to person, oriented to place, oriented to time, oriented to situation Psychiatric exam: PRESENT: appropriate affect, normal mood Skin exam: PRESENT: dry, intact, warm. ABSENT: rash Results Laboratory Results: WBC 23.1 10^3/uL (4.0-10.5) H 08/25/20 05:38 RBC 3.06 10^6/uL (4.35-5.55) L 08/25/20 05:38 Hgb 10.5 g/dL (13.5-17.0) L 08/25/20 05:38 Hct 30.6 % (37.9-51.0) L 08/25/20 05:38 MCV 100 fl (80-97) H 08/25/20 05:38 MCH 34.4 pg (27.0-33.4) H 08/25/20 05:38 MCHC 34.4 g/dL (32.0-36.0) 08/25/20 05:38 RDW 15.4 % (11.5-14.0) H 08/25/20 05:38 Plt Count 182 10^3/uL (150-450) 08/25/20 05:38 Lymph % (Auto) Not Reportable 08/25/20 05:38 [place] % (Auto) Not Reportable 08/25/20 05:38 Eos % (Auto) Not Reportable 08/25/20 05:38 Baso % (Auto) Not Reportable 08/25/20 05:38 Absolute Neuts (auto) Not Reportable 08/25/20 05:38 Absolute Lymphs (auto) Not Reportable 08/25/20 05:38 Absolute Monos (auto) Not Reportable 08/25/20 05:38 Absolute Eos (auto) Not Reportable 08/25/20 05:38 Absolute Basos (auto) Not Reportable 08/25/20 05:38 Total Counted 100 08/25/20 05:38 Seg Neutrophils % Not Reportable 08/25/20 05:38 Seg Neuts % (Manual) 95 % (42-78) H 08/25/20 05:38 Band Neutrophils % 1 % (3-5) L 08/23/20 19:25 Lymphocytes % (Manual) 2 % (13-45) L 08/25/20 05:38 Monocytes % (Manual) 1 % (3-13) L 08/25/20 05:38 Eosinophils % (Manual) 2 % (0-6) 08/25/20 05:38 Basophils % (Manual) 0 % (0-2) 08/25/20 05:38 Metamyelocytes % 1 % (0-1) 08/23/20 19:25 Abs Neuts (Manual) 21.9 10^3/uL (1.7-8.2) H 08/25/20 05:38 Abs Lymphs (Manual) 0.5 10^3/uL (0.5-4.7) 08/25/20 05:38 Abs Monocytes (Manual) 0.2 10^3/uL (0.1-1.4) 08/25/20 05:38 Absolute Eos (Manual) 0.5 10^3/uL (0.0-0.6) 08/25/20 05:38 Abs Basophils (Manual) 0.0 10^3/uL (0.0-0.2) 08/25/20 05:38 Platelet Comment ADEQUATE 08/25/20 05:38 Polychromasia SLIGHT 08/25/20 05:38 Poikilocytosis SLIGHT 08/23/20 19:25 Anisocytosis SLIGHT 08/25/20 05:38 Macrocytosis 1+ 08/25/20 05:38 Target Cells SLIGHT 08/25/20 05:38 PT 29.4 SEC (11.4-15.4) H 08/23/20 19:25 INR 2.79 08/23/20 19:25 APTT 54.9 SEC (23.5-35.8) H 08/23/20 19:25 Sodium 138.2 mmol/L (137-145) 08/25/20 07:02 Potassium 4.1 mmol/L (3.6-5.0) 08/25/20 07:02 Chloride 107 mmol/L (98-107) 08/25/20 07:02 Carbon Dioxide 22 mmol/L (22-30) 08/25/20 07:02 Anion Gap 9 (5-19) 08/25/20 07:02 BUN 40 mg/dL (7-20) H 08/25/20 07:02 Creatinine 1.42 mg/dL (0.52-1.25) H 08/25/20 07:02 Est GFR ( Amer) > 60 (>60) 08/25/20 07:02 Est GFR (Non-Af Amer) Cancelled 08/25/20 05:38 Est GFR (MDRD) Non-Af 51 (>60) L 08/25/20 07:02 Glucose 107 mg/dL (75-110) 08/25/20 07:02 Lactic Acid 2.6 mmol/L (0.7-2.1) H 08/24/20 09:18 Calcium 12.4 mg/dL (8.4-10.2) H* 08/25/20 07:02 Ionized Calcium Gabo 1.75 mmol/L (1.14-1.30) H 08/24/20 09:18 Phosphorus 3.6 mg/dL (2.5-4.5) 08/24/20 09:18 Magnesium 2.4 mg/dL (1.6-2.3) H 08/25/20 07:02 Total Bilirubin 5.0 mg/dL (0.2-1.3) H 08/24/20 09:18 Direct Bilirubin 4.0 mg/dL (0.0-0.4) H 08/24/20 09:18 Neonat Total Bilirubin Not Reportable 08/24/20 09:18 Neonat Direct Bilirubin Not Reportable 08/24/20 09:18 Neonat Indirect Bili Not Reportable 08/24/20 09:18 AST 181 U/L (17-59) H 08/24/20 09:18 ALT 87 U/L (<50) H 08/24/20 09:18 Alkaline Phosphatase 216 U/L (38-126) H 08/24/20 09:18 Ammonia 18.7 umol/L (9-33) 08/24/20 02:12 Creatine Kinase 131 U/L (55-170) 08/23/20 19:25 Troponin I < 0.012 ng/mL 08/23/20 19:25 NT-Pro-B Natriuret Pep 721 pg/mL (<125) H 08/23/20 19:25 Total Protein 6.3 g/dL (6.3-8.2) 08/24/20 09:18 Albumin 3.2 g/dL (3.5-5.0) L 08/24/20 09:18 Lipase 40.9 U/L (23-300) 08/23/20 19:25 EGFR Cancelled 08/25/20 05:38 PTH Intact 7.0 pg/mL (10.0-65.0) L 08/24/20 09:18 Urine Color LINDSEY 08/23/20 21:26 Urine Appearance CLEAR 08/23/20 21:26 Urine pH 5.0 (5.0-9.0) 08/23/20 21:26 Ur Specific Orient 1.013 08/23/20 21:26 Urine Protein NEGATIVE mg/dL (NEGATIVE) 08/23/20 21:26 Urine Glucose (UA) NEGATIVE mg/dL (NEGATIVE) 08/23/20 21:26 Urine Ketones NEGATIVE mg/dL (NEGATIVE) 08/23/20 21:26 Urine Blood NEGATIVE (NEGATIVE) 08/23/20 21:26 Urine Nitrite (Reflex) NEGATIVE (NEGATIVE) 08/23/20 21:26 Urine Bilirubin NEGATIVE (NEGATIVE) 08/23/20 21:26 Urine Urobilinogen 2.0 mg/dL (<2.0) H 08/23/20 21:26 Leukocyte Esterase Rfl NEGATIVE (NEGATIVE) 08/23/20 21:26 Urine RBC (Auto) 1 /HPF 08/23/20 21:26 U Hyaline Cast (Auto) 33 /LPF 08/23/20 21:26 Urine WBC (Reflex) 3 /HPF 08/23/20 21:26 Urine Mucus (Auto) RARE /LPF 08/23/20 21:26 Urine Ascorbic Acid NEGATIVE (NEGATIVE) 08/23/20 21:26 COVID-19 Source See comment 08/24/20 04:30 COVID-19 (TOAN) Not Detected (Not Detect) 08/24/20 04:30 Influenza A (Rapid) NEGATIVE (NEGATIVE) 08/23/20 21:26 Influenza B (Rapid) NEGATIVE (NEGATIVE) 08/23/20 21:26 Blood Type B POSITIVE 08/23/20 19:25 Antibody Screen NEGATIVE 08/23/20 19:25 08/23/20 08/23/20 19:25 19:25 Troponin I < 0.012 NT-Pro-B Natriuret Pep 721 H Impressions: Chest X-Ray 08/23/20 18:54 IMPRESSION: Chronic lung changes with pulmonary nodules. No acute finding. Abdomen/Pelvis CT 08/23/20 22:16 IMPRESSION: 1. Cholelithiasis. 2. Stable cecal mass/probable adenocarcinoma and hepatic metastatic disease and likely pulmonary metastatic disease when compared with the recent prior exam. 3. Left nephrolithiasis. Hand X-Ray 08/24/20 00:00 IMPRESSION: Orthopedic hardware at 3rd and 4th metacarpals. No obvious hardware failure. Plan Plan of Treatment: 1. Hypercalcemia (high levels of calcium in your blood) can cause constipation, the person to feel altered (out of it), bone pain, muscle weakness, abdominal pain and even loss of appetite. It is common for patients with cancer to experience hypercalcemia. -This was treated with lots of fluids and medications like bisphosphonates and calcitonin. Both of these work to decrease the amount of calcium in your body. -You can treat your constipation with MiraLAX with the goal to have regular bowel movements every day consistently. -Please continue taking your bisphosphonate as prescribed at home. -Please drink lots of fluids this will also help get the calcium out of your body. 2. Your blood pressures were found to be consistently in the low 100s/80s. Please stop taking your blood pressure medications at this time. Please monitor your blood pressure daily. Just a reminder you are scheduled for a liver biopsy at [facility] Wednesday (08/26/2020) at 9 AM. Please follow-up with Dr. Hawkins as scheduled. Time Spent: Greater than 30 Minutes Stroke Is this a Stroke Patient?: No Acute Heart Failure Is this a Heart Failure Patient?: No
[2020-08-25 13:16] VITALS: BP 113/53
== END 2020-08-25 13:58 | disposition home or self-care (01) | DRG 641 ==
LOC: ER 18:20 → EH 08-24 01:57 → 3W 08-24 10:24
PROVIDERS: ADMIT Student in an Organized Health Care Education/Training Program; ATTEND Physician Assistant
DX: E83.52 Hypercalcemia (principal); C19 Malignant neoplasm of rectosigmoid junction; C78.7 Secondary malignant neoplasm of liver and intrahepatic bile duct; C78.02 Secondary malignant neoplasm of left lung; C78.01 Secondary malignant neoplasm of right lung; C79.51 Secondary malignant neoplasm of bone; N17.9 Acute kidney failure, unspecified; I10 Essential (primary) hypertension; F17.210 Nicotine dependence, cigarettes, uncomplicated; E86.1 Hypovolemia; I95.89 Other hypotension; Z20.828 Contact with and (suspected) exposure to other viral communicable diseases
CPT/HCPCS: 36415; 71046; 74176; 80048; 80053; 81001; 82140; 82330; 82550; 83605; 83690; 83735; 83880; 83970; 84100; 84484; 85025; 85610; 85730; 86850; 86900; 86901; 87040; 87070; 87086; 87635; 87804; 93005; 93010; 96365; 96366; 96368; 96375; 99285; C9803; J0630; J1650; J1956; J2270; J2405; J2543; J3489; J3490; J7030; J7050; J7120

== ENCOUNTER 2020-08-26 09:00 | Day surgery (SDC) | payer SELFPAY ==
[2020-08-26 11:07] LABS: HEMATOCRIT 28.5 % (37.9-51.0); HEMOGLOBIN 9.9 g/dL (13.5-17.0); MEAN CORPUSCULAR HEMOGLOBIN 34.7 pg (27.0-33.4); MEAN CORPUSCULAR HGB CONC 34.6 g/dL (32.0-36.0); MEAN CORPUSCULAR VOLUME 100 fl (80-97); PLATELET COUNT 200 10^3/uL (150-450); RED BLOOD COUNT 2.85 10^6/uL (4.35-5.55); RED CELL DISTRIBUTION WIDTH 15.4 % (11.5-14.0); WHITE BLOOD COUNT 29.4 10^3/uL (4.0-10.5)
[2020-08-26 11:16] LABS: PROTHROMBIN TIME 15.4 SEC (11.4-15.4)
[2020-08-26 11:17] LABS: PARTIAL THROMBOPLASTIN TIME 40.6 SEC (23.5-35.8)
[2020-08-26 11:24] LABS: BLOOD UREA NITROGEN 30 mg/dL (7-20)
[2020-08-26] MEDS ORDERED: FENTANYL CITRATE INJ/PF 100 MCG/2 ML AMPUL ONE (12:05)
[2020-08-26] MEDS ORDERED: MIDAZOLAM 2 MG/2 ML INJ ONE (12:05)
[2020-08-26 14:43] VITALS: BP 119/72
--- NOTE | 2020-08-26 16:00 | RADIOLOGY REPORT (SQ) ---
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 TECHNIQUE: After obtaining informed consent and explaining the risks and benefits of conscious sedat ion,the patient agreed to the procedure. The patient was brought to the CT suite and was placed supin e on the CT gurney. The patient was prepped and draped in the usual sterile fashion. Axial images we re obtained for targeting of theposterior segment right lobe lesion. An appropriate access site was s elected. IV conscious sedation was administered and physician direction by the registered nurse using 1 milligrams of Versed and 50 micrograms of fentanyl. Physiologic monitoring was provided before, du ring, and after sedation. The total sedation time was 15 minutes. Documentation face to face time, the performing proceduralist, spent monitoring the patient: [address] of the liver was performed to localize an approach for the targeted liver biopsy. A percutaneous site was marked. Time out was performed. After skin prep and local lidocaine for skin and deep tissue anesthesia, a coaxial biopsy needle sys tem was used to obtain several cores of tissue from the lesion in the right lobe of the liver. These were submitted to the lab in formalin. The biopsy tract was embolized with Gelfoam. No immediate po stprocedure complications. Total of [address] fluoro was used. 488 CT Fluoroscopic images were obtained and saved to PACS. All CT scanners at this facility use dose modulation, iterative reconstruction, and/or weight based d osing when appropriate to reduce radiation dose to as low as reasonably achievable (ALARA). [facility]: Dose Right [facility]: CareDose [facility]: Dose Right [facility]: Teradose 4D [facility]: [employer] RADIATION DOSE: CT Rad equipment meets quality standard of care and radiation dose reduction techniq ues were employed. CTDIvol: 4.8 - 28.6 mGy. DLP: 651 mGy-cm. mGy. LIMITATIONS: None. FINDINGS: CT guided liver biopsy as detailed above. IMPRESSION: CT GUIDED TARGETED LIVER BIOPSY PERFORMED ABOVE. PATHOLOGY PENDING. NO IMMEDIATE C OMPLICATIONS. COMMENT: Patient medication list reviewed:Yes- Quality ID# [id number]:Eligible professional attests to docu menting in the medical record they obtained, updated, or reviewed the patient's current medications.. Quality ID 145: Final reports for procedures using fluoroscopy that document radiation exposure dionne jeffrey, or exposure time and number of fluorographic images (if radiation exposure indices are not avail able) TECHNICAL DOCUMENTATION: JOB ID: [id number] Quality ID # [id number]: Final reports with documentation of one or more dose reduction techniques (e.g., A utomated exposure control, adjustment of the mA and/or kV according to patient size, use of iterative reconstruction technique) 2010 [employer]- All Rights Reserved Reading location - IP/workstation name: [email or web address]-
== END 2020-08-26 14:30 | disposition home or self-care (01) ==
LOC: RAD 09:00
PROVIDERS: ATTEND Internal Medicine
DX: C18.0 Malignant neoplasm of cecum (principal); C7B.02 Secondary carcinoid tumors of liver
CPT/HCPCS: 36415; 84520; 82565; 85027; 85610; 85730; 88342 ×2; 88341 ×2; 88305 ×2; 47000; J2250; J3010

== ENCOUNTER 2020-08-30 05:31 | Day surgery (SDC) | payer SELFPAY ==
[~2020-08-30 05:31] MED LIST: CEFAZOLIN 2 GM/D5W RTU 2 GM/50 ML RTUPB IV ONE; CEFAZOLIN 2 GM/D5W RTU 2 GM/50 ML RTUPB IV PRN; IBUPROFEN 800 MG in NORMAL SALINE 250 ML IV PRN
[2020-08-30] MEDS ORDERED: FENTANYL CITRATE INJ/PF 100 MCG/2 ML AMPUL ONE (06:58)
[2020-08-30] MEDS ORDERED: ONDANSETRON HCL INJ/PF 4 MG/2 ML SDV ONE (06:59)
[2020-08-30] MEDS ORDERED: PROPOFOL INJ 200 MG/20 ML VIAL IV ONE ×2 (06:59→08:58)
[2020-08-30] MEDS ORDERED: DEXMEDETOMIDINE INJ 80 MCG/20 ML VIAL IV ONE (06:59)
[2020-08-30] MEDS ORDERED: MIDAZOLAM 2 MG/2 ML INJ ONE (06:59)
[2020-08-30] MEDS ORDERED: LIDOCAINE 2% INJ (20 MG/ML) 20 ML MDV ONE (07:00)
[2020-08-30] MEDS ORDERED: LIDOCAINE 1% INJ-PF (10 MG/ML) 30 ML SDV ONE (07:10)
[2020-08-30] MEDS ORDERED: BUPIVACAINE HCL 0.25 % INJ/PF (2.5 MG/1 ML) 30 ML VIAL ONE (07:10)
[2020-08-30] MEDS ORDERED: RINGERS SOLUTION,LACTATED 1,000 ML IV PRN (07:15)
[2020-08-30] MEDS ORDERED: MORPHINE SULFATE 10 MG/ML INJ IV PRN (07:46)
[2020-08-30] MEDS ORDERED: MEPERIDINE HCL/PF INJ 25 MG/1 ML DISP.SYRIN IV PRN (07:46)
[2020-08-30] MEDS ORDERED: FENTANYL CITRATE INJ/PF 100 MCG/2 ML AMPUL IV PRN ×3 (07:46)
[2020-08-30] MEDS ORDERED: DIPHENHYDRAMINE HCL 50 MG/ML VIAL IV PRN (07:46)
[2020-08-30] MEDS ORDERED: ONDANSETRON HCL INJ/PF 4 MG/2 ML SDV IV PRN (07:46)
[2020-08-30] MEDS ORDERED: HYDROCODONE/ACETAMINOPHEN 5-325 MG TABLET PO PRN (09:01)
--- NOTE | 2020-08-30 09:01 | Discharge Summary ---
Discharge Summary (SDC) - Discharge Final Diagnosis: metastatic cancer, colon mass Date of Surgery: 08/30/20 Discharge Date: 08/30/20 Forms: ASU Anesthesia D/C Instruction, Discharge POC-Surgical Service Treatment or Instructions: ok to use port. f/u with [facility] PRN. Referrals: MAURO LERNER MD [ACTIVE STAFF] - Discharge Diet: As Tolerated Respiratory Treatments at Home: Deep Breathing/Coughing, Incentive Spirometer Discharge Activity: Activity As Tolerated, Balance Activity w/Rest Home Care Assistance: None Needed Report the Following to Your Physician Immediately: Shortness of Breath, Nausea, Vomiting, Increase in Pain, Fever over 101 Degrees, Unusual Bleeding, Redness
--- NOTE | 2020-08-30 09:22 | RADIOLOGY REPORT (SQ) ---
EXAM DESCRIPTION: CHEST SINGLE VIEW IMAGES COMPLETED DATE/TIME: 08/30/2020 9:10 am REASON FOR STUDY: port placement COMPARISON: Two-view chest 08/23/2020 CT chest 08/19/2020 EXAM PARAMETERS: NUMBER OF VIEWS: One view. TECHNIQUE: Single frontal radiographic view of the chest acquired. RADIATION DOSE: NA LIMITATIONS: None. FINDINGS: LUNGS AND PLEURA: Multiple tiny pulmonary nodules seen on CT chest are difficult to apprec iate by plain film. Some are visible over the left heart border. No consolidation worrisome for pulmonary edema or pneumonia. No pleural effusion or pneumothorax. MEDIASTINUM AND HILAR STRUCTURES: No masses. Contour normal. HEART AND VASCULAR STRUCTURES: Borderline cardiomegaly BONES: No acute findings. HARDWARE: Left-sided permanent central line tip superior vena cava OTHER: No other significant finding. IMPRESSION: NO ACUTE RADIOGRAPHIC FINDING IN THE CHEST. TECHNICAL DOCUMENTATION: JOB ID: [id number] 2010 [employer]- All Rights Reserved Reading location - IP/workstation name: [email or web address]
[2020-08-30 13:08] VITALS: BP 100/59
--- NOTE | 2020-08-30 13:49 | RADIOLOGY REPORT (SQ) ---
EXAM DESCRIPTION: FLUORO/CV PLACEMENT IMAGES COMPLETED DATE/TIME: 08/30/2020 1:38 pm REASON FOR STUDY: PORTACATH PLCMT LEFT SIDE ASSISTED WITH FLUORO IN OR K63.89 OTHER SPECIFIED DISEA SES OF INTESTINE C79.9 SECONDARY MALIGNANT NEOPLASM OF UNSPECIFIED SITE COMPARISON: None. FLUOROSCOPY TIME: 0.6 minutes Spot images saved to PACS. TECHNIQUE: Intra-operative images acquired during surgical procedure to evaluate progress. NUMBER OF IMAGES: 3 LIMITATIONS: None. FINDINGS: Fluoroscopy was provided for intraoperative procedure. Please refer to the operative repo rt for further discussion. IMPRESSION: IMAGE(S) OBTAINED DURING PROCEDURE. COMMENT: Quality ID 145: Final reports for procedures using fluoroscopy that document radiation exp osure indices, or exposure time and number of fluorographic images (if radiation exposure indices are not available) Please consult full operative report of the attending physician for description of the procedure. TECHNICAL DOCUMENTATION: JOB ID: [id number] 2010 [employer]- All Rights Reserved Reading location - IP/workstation name: [email or web address]
--- NOTE | 2020-08-30 20:30 | Operative Report ---
Nonrecallable Operative Report DATE OF SURGERY: 08/30/20 PREOPERATIVE DIAGNOSIS: 1. Metastatic cancer. 2. Cecal mass POSTOPERATIVE DIAGNOSIS: Same as above OPERATION: 1. Ultrasound-guided central venous puncture. 2. Left internal jugular vein Mediport placement. 3. Colonoscopy with cold biopsy of cecal mass. SURGEON: MAURO LERNER ANESTHESIA: LMAC TISSUE REMOVED OR ALTERED: Cecal mass biopsy COMPLICATIONS: Apparent ESTIMATED BLOOD LOSS: minimal PROCEDURE: Drains/implants: Left internal jugular vein Mediport placement. Procedure in detail: After informed consent was obtained, the patient was brought into the operating room and laid in the Trendelenburg position. The area of the neck and chest were prepped and draped in a normal sterile fashion. An ultrasound was used to identify the left internal jugular vein. It was compressible with normal flow. The left internal jugular vein was then can nulated using the supplied access needle, under direct ultrasonic guidance. I was inserted into the vein easily. The wire was confirmed to be within the lumen of the vein using the ultrasound as well as fluoroscopy. Picture documentation was captured and placed on the chart. Next, a separate incision was created for the Mediport hub. This was created with a 15 blade scalpel. The catheter was then tunneled from the hub site, to the needle insertion site. The dilator and breakaway sheath were then inserted over the wire. This was done under direct fluoroscopic guidance. Dilator and wire were removed. The catheter was inserted into the breakaway sheath. The sheath was cracked and pulled away, leaving the catheter within the SVC. The catheter was then pulled back to an appropriate level. It was then trimmed to length, and the Mediport hub was attached. The hub was buried in the pocket, and sutured to the chest wall using 3-0 Vicryl suture. The subcutaneous tissues were then closed using 3-0 Vicryl suture in simple running fashion. The overlying skin was closed using 4-0 Vicryl Rapide suture in subcuticular fashion. The Mediport hub was then accessed, aspirated, and flushed with heparinized saline. Dressings were placed, and this portion of the procedure was concluded. The drapes were taken down, and the patient was rolled into the left lateral decubitus position. Attention was then turned to the colonoscopy. The colonoscope was inserted into the rectum. It was passed up the rectum, sigmoid colon, descending colon, across the transverse colon, down the ascending colon, and into the cecum. Within the cecum there was a large masslike lesion proximal to the ileocecal valve. The appendiceal orifice could not be identified due to the large mass. Multiple biopsies were taken of the large mass. The scope was then withdrawn, circumferentially noting the mucosa. The prep was fair. The scope was withdrawn past the ascending colon, transverse colon, down the descending colon, sigmoid colon, and into the rectum. No other mass lesions could be identified throughout the colon (except for the large mass within the cecum). I believe this is the abnormality seen on CT scan, and the cause for his metastatic disease. I will await the biopsy results. All sponge, instrument, needle counts were correct x2. Condition: Fair
--- NOTE | 2020-08-31 09:46 | EKG REPORT ---
SEVERITY:- ABNORMAL ECG - SINUS TACHYCARDIA NONSPECIFIC T ABNORMALITIES, INFERIOR LEADS BORDERLINE PROLONGED QT INTERVAL : Confirmed by: Wil Gonzalez 31-Aug-2020 09:45:51
--- OUTSIDE RECORDS SUMMARY | 2020-09-02 08:52 | XMS REPORT ---
:1960 [facility] [address] [place] [address] Care Team Providers Name Role Phone Ross Gomes Attending Clinician Unavailable Allergies, Adverse Reactions, Alerts This patient has no known allergies or adverse reactions. Medications Ordered Filled Start Stop Current Ordering Indication Dosage Frequency Signature Comments Components Medication Medication Date Date Medication? 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 Procedures Procedure Date / Time Performed Performing Clinician Devic e Hand surgery Results Test Description Test Time Test Comments Text Results Atomic Results Result Comments WBC 2020-08-14 10:31:00 Test Item Value Reference Range Comments WBC (test code = WBC) 21.5000 4.0000-10.0000 Lymphocytes % (test code = Lymphocytes %) 5.1000 % 22.400 0-43.6000 MID% (test code = MID%) 5.6000 % 1.2000-11.1999 Neutrophils % (test code = Neutrophils %) 89.3000 % 48.900 0-69.9000 Lymphocytes (test code = Lymphocytes) 1.1000 1.2000-3.2 000 MID (test code = MID) 1.2000 0.1000-1.1000 Neutrophils (test code = Neutrophils) 19.2000 1.5000-6.7 000 RBC (test code = RBC) 4.4600 3.7000-4.9000 HGB (test code = HGB) 15.0000 g/dL 11.2000-18.0000 HCT (test code = HCT) 44.9000 % 34.0000-44.0000 MCV (test code = MCV) 100.7000 fL 80.0000-94.0000 MCH (test code = MCH) 33.6000 pg 27.0000-34.0000 MCHC (test code = MCHC) 33.4000 g/dL 31.5000-36.0000 RDW (test code = RDW) 15.8000 11.0000-18.0000 PLT (test code = PLT) 222.0000 140.0000-440.0000 MPV (test code = MPV) 8.4000 fL 6.8000-10.6000 [id number] 10:31:00 Test Item Value Reference Range Comments RDW (test code = RDW) 15.8000 11.0000-18.0000 Neutrophils % (test code = Neutrophils %) 89.3000 % 48.900 0-69.9000 HCT (test code = HCT) 44.9000 % 34.0000-44.0000 Lymphocytes % (test code = Lymphocytes %) 5.1000 % 22.400 0-43.6000 MID% (test code = MID%) 5.6000 % 1.2000-11.2000 MCH (test code = MCH) 33.6000 pg 27.0000-34.0000 MPV (test code = MPV) 8.4000 fL 6.8000-10.6000 MCV (test code = MCV) 100.7000 fL 80.0000-94.0000 MCHC (test code = MCHC) 33.4000 g/dL 31.5000-36.0000 HGB (test code = HGB) 15.0000 g/dL 11.2000-18.0000 Lymphocytes (test code = Lymphocytes) 1.1000 1.2000-3.2 000 MID (test code = MID) 1.2000 0.1000-1.1000 Neutrophils (test code = Neutrophils) 19.2000 1.5000-6.7 000 PLT (test code = PLT) 222.0000 140.0000-440.0000 WBC (test code = WBC) 21.5000 4.0000-10.0000 RBC (test code = RBC) 4.4600 3.7000-4.9000 Encounters Start End Encounter Admission Attending Care Care Encounter Date/Time Date/Time Type Type Clinicians Facility Department ID 2020-08-28 2020-08-28 Outpatient Eraner Eraner n [id number] 00:00:00 00:00:00 [facility] 2020-08-24 2020-08-24 Outpatient Southeaster Eraner n [id number] 00:00:00 00:00:00 [facility] 2020-08-23 2020-08-23 Outpatient Eraner Eraner n [id number] 00:00:00 00:00:00 [facility] 2020-08-21 2020-08-21 Ross Estrada [facility] [id number] [facility] 2020-08-16 2020-08-16 Outpatient Eraner Eraner n [id number] 00:00:00 00:00:00 [facility] 2020-08-15 2020-08-15 Outpatient Chelsea Barillaser n [id number] 00:00:00 00:00:00 [facility] 2020-08-14 2020-08-14 Ross Estrada Eran[facility] [id number] 00:00:00 00:00:00 Ignacia Garcia [facility] 2020-08-13 2020-08-13 Outpatient Eraner Eraner n [id number] 00:00:00 00:00:00 [facility] 2020-08-12 2020-08-12 Outpatient Eraner Eraner n [id number] 00:00:00 00:00:00 [facility] 2020-08-06 2020-08-06 Outpatient Chelsea Barillaser n [id number] 00:00:00 00:00:00 [facility] 2020 2020 Outpatient Southeaster Eraner n [id number] 00:00:00 00:00:00 [facility] 2019-11-24 2019-11-24 Outpatient Southeaster Eraner n [id number] 00:00:00 00:00:00 [facility] Oncology Oncology [facility] Social History Smoking Status Start Date Stop Date Current every day smoker 2020-08-21 00:00:00 2020-08-21 00:0 0:00 Social History Observation Description Sex Male Vital Signs Vital Name Observation Time Observation Value Comments BMI 2020-08-21 10:16:41 27.9700 BP flowers 2020-08-21 10:16:41 62.0000 mm[Hg] Bdy height 2020-08-21 10:16:41 69.0000 [in_i] SaO2% BldA PulseOx 2020-08-21 10:16:41 97.0000 % Heart rate 2020-08-21 10:16:41 101.0000 /min Resp rate 2020-08-21 10:16:41 20.0000 /min BP sys 2020-08-21 10:16:41 115.0000 mm[Hg] Body temperature 2020-08-21 10:16:41 97.3000 [degF] Weight 2020-08-21 10:16:41 189.4000 [lb_av] BP flowers 2020-08-14 10:14:21 62.0000 mm[Hg] Bdy height 2020-08-14 10:14:21 69.0000 [in_i] SaO2% BldA PulseOx 2020-08-14 10:14:21 96.0000 % Heart rate 2020-08-14 10:14:21 79.0000 /min Resp rate 2020-08-14 10:14:21 18.0000 /min BP sys 2020-08-14 10:14:21 112.0000 mm[Hg] Body temperature 2020-08-14 10:14:21 97.0000 [degF] Weight 2020-08-14 10:14:21 192.0000 [lb_av] BMI 2020-08-14 10:14:21 28.3500
== END 2020-08-30 11:19 | disposition home or self-care (01) ==
LOC: OROUT 05:31
PROVIDERS: ATTEND Surgery
DX: C18.0 Malignant neoplasm of cecum (principal); C18.9 Malignant neoplasm of colon, unspecified; C79.51 Secondary malignant neoplasm of bone; C78.7 Secondary malignant neoplasm of liver and intrahepatic bile duct; R91.8 Other nonspecific abnormal finding of lung field; I10 Essential (primary) hypertension; F17.210 Nicotine dependence, cigarettes, uncomplicated; Z85.828 Personal history of other malignant neoplasm of skin; Z80.0 Family history of malignant neoplasm of digestive organs; Z79.899 Other long term (current) drug therapy; Z80.51 Family history of malignant neoplasm of kidney
CPT/HCPCS: 36561; 45380; 88305 ×2; 71045; 77001; 93005; 93010; 00532; C1788; J2250; J3490 ×3; J3010; J2405; J7050; J2704; J0690; J1642; J1741; 532; 88341; 88342